=== PATIENT | female | born 1985 | race Caucasian/White ===

== ENCOUNTER 2024-04-02 16:21 | Inpatient (IN) | payer SELFPAY ==
[2024-04-02 16:34] VITALS: BP 118/83; PULSE 103; RESP 18; TEMP 36.6; O2SAT 95
[2024-04-02 16:37] VITALS: BMI 22.8
[2024-04-02] MEDS: OLANZapine 5 mg ODT PO (16:59)
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
[2024-04-02 20:21] VITALS: BP 97/64; PULSE 88; RESP 18; TEMP 36.6; O2SAT 94
[2024-04-03 06:00] VITALS: BP 109/73; PULSE 90; RESP 16; TEMP 37; O2SAT 96
[2024-04-03 13:37] VITALS: BP 128/84; PULSE 97; RESP 16; TEMP 36.8; O2SAT 98
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
[2024-04-03 14:13] LABS: Glucose Point of Care 80 mg/dL (70-110)
[2024-04-03] MEDS: acetaminophen 325 mg Tablet 650 MG PO (14:19)
[2024-04-03] MEDS: sertraline 50 mg Tablet 25 MG PO (14:19)
[2024-04-03] MEDS: promethazine 25 mg/mL SDV 1 mL IM (15:05)
--- NOTE | 2024-04-03 17:46 | PC.NURSE ---
PT CAME TO THIS NURSE WITH C/O OF N/V, DIZZINESS, FEELING FEVERISH , AND CHILLED. PT BLOOD SUGAR WAS OBTAINED WHICH RESULTED TO BE 80. PT REFUSED BREAKFAST AND STATED SHE DID NOT FEEL LIKE SHE WAS ABLE TO EAT LUNCH. THIS NURSE GAVE PT ICE-WATER AND A ENSURE TO PT, PT WAS UNABLE TO HOLD THIS DOWN AND VOMITED 2 TIMES. THIS NURSE SPOKE WITH PHYSICIAN WHO ORDERED 25MG IM PHENERGEN. THIS WAS ADMINISTERED AND PT WAS ABLE TO REST. HOWEVER WHEN PT WOKE FOR SUPPER PT WAS STILL UNABLE TO EAT. THIS NURSE PROVIDED A CLEAR ENSURE TO SEE IF JUST PROVIDING LIQUIDS WOULD GIVE THE PT THE ABILITY TO HOLD DOWN SOME CALORIES. THIS PT WAS UNABLE TO EVEN HOLD DOWN JUST LIQUIDS AND REQUIRED A BASIN FOR EMESIS. THIS NURSE ASSISTED PT IN CLEANING UP. THIS NURSE EMPTIED AND CLEANED OUT BASIN, ASSISTED PT IN BRUSHING HER TEETH SHE IS WEAK AND CANNOT STAND FOR A SHOWER AT THIS TIME. PT IS LETHARGIC AND WEAK, SHE IS UNSTEADY WHILE SITTING AT THIS TIME. THIS NURSE SPOKE WITH PHYSICIAN ABOUT UPDATES. PHYSICIAN OBTAINED A MEDICAL CONSULT. PT CURRENT NEEDS ARE MET AT THIS TIME.
--- NOTE | 2024-04-03 18:21 | CTR_ITS ---
PROCEDURE INFORMATION: Exam: CT Abdomen And Pelvis Without Contrast Exam date and time: 04/03/2024 6:37 PM Age: 39 years old Clinical indication: Nausea and vomiting; Additional info: Nausea vomitting TECHNIQUE: Imaging protocol: Computed tomography of the abdomen and pelvis without contrast. Radiation optimization: All CT scans at this facility use at least one of these dose optimization techniques: automated exposure control; mA and/or kV adjustment per patient size (includes targeted exams where dose is matched to clinical indication); or iterative reconstruction. COMPARISON: No relevant prior studies available. RADIATION DOSE METRICS: Total DLP (mGy-cm): 375 FINDINGS: Liver: 1.3 cm hypoattenuating focus within the left hepatic lobe likely representing a cyst versus hemangioma. Gallbladder and biliary ducts: Normal. No calcified stones. No ductal dilation. Pancreas: Normal. No ductal dilation. Spleen: Normal. No splenomegaly. Adrenal glands: Normal. No mass. Kidneys and ureters: 0.3 cm nonobstructing calculus in the interpolar of the left kidney. Hyperdense bilateral renal pyramids. No hydronephrosis. Stomach and bowel: Fecalization of stool within multiple loops of small bowel suggesting slow transit. No evidence of obstruction. Appendix: No evidence of appendicitis. Intraperitoneal space: Small volume free fluid in the pelvis. Mild haziness of the central mesentery. Vasculature: Unremarkable. No abdominal aortic aneurysm. Lymph nodes: Unremarkable. No enlarged lymph nodes. Urinary bladder: Unremarkable as visualized. Reproductive: The uterus is retroflexed. No adnexal mass. Bones/joints: Unremarkable. No acute fracture. Soft tissues: Unremarkable. CT/CT abdomen pelvis con [id number] IMPRESSION: 1. Nonspecific small volume free fluid in the pelvis. Findings can be correlated with ultrasound if clinically indicated. No adnexal mass. 2. 0.3 cm nonobstructing calculus in the interpolar of the left kidney. Hyperdense bilateral renal pyramids which may be normal or secondary to metabolic disturbance. Findings can be correlated with urinalysis if clinically indicated. No hydronephrosis. 3. Fecalization of stool within multiple loops of small bowel suggesting slow transit. No evidence of obstruction. COMMENTS: Consistent with the [employer]'s Incidental Findings Committee white paper (J Am Ivana Radiol 2018): Any incidental renal lesion less than 1 cm or classified as too small to characterize, or any incidental cystic renal lesion characterized as simple-appearing, is likely benign. No follow-up imaging is recommended for these lesions per consensus recommendations based on imaging criteria.
--- NOTE | 2024-04-03 19:18 | PC.NURSE ---
Report called to Maricarmen BARNETTsurg rn. No further questions. Waiting on bed to be cleaned.
[2024-04-03 19:29] VITALS: BP 130/80; PULSE 100; RESP 18; TEMP 36.8; O2SAT 98
[2024-04-03 19:38] LABS: Basophils # 0.1 10^3/uL (0.0-0.1); Basophils % 0.4 %; Lymphocytes # 0.4 10^3/uL (0.8-4.8); Lymphocytes % 3.2 %; Mean Corpuscular Hemoglobin 27.7 pg (27-33); Mean Corpuscular Volume 89.3 fl (85-98); Mean Platelet Volume 10.7 fL (7.4-10.4); Monocytes # 0.2 10^3/uL (0.2-0.9); Neutrophils # 11.31 10^3/uL (1.8-7.7); Neutrophils % 94.2 %; Nucleated Red Blood Cells % 0 %; Platelet Count 312 10^3/cmm (157-399); Red Blood Count 4.59 10^6/uL (3.85-5.65); Red Cell Distribution Width 13.7 % (12.1-15.1)
[2024-04-03 19:55] LABS: Alanine Aminotransferase 12 U/L (0-33); Albumin Level 4.6 g/dL (3.5-5.2); Alkaline Phosphatase 79 U/L (35-105); Anion Gap 27.6 (5-19); Aspartate Amino Transferase 25 U/L (0-32); Blood Urea Nitrogen 13 mg/dL (6-20); Calcium 9.1 mg/dL (8.5-10.5); Carbon Dioxide 15 mmol/L (22-29); Chloride 99 mmol/L (98-107); Creatinine Clr Calc Pharmacy 116.7058; Globulin 3.5 g/dL (1.3-4.6); Glomerular Filtration Rate 93.6 mL/min (90-130); Glucose 111 mg/dL (65-115); Lipase 14 U/L (13-60); Osmolality Calculated 285 mOsm/kg (285-295); Potassium 4.6 mmol/L (3.5-5.1); Sodium 137 mmol/L (136-145); Total Bilirubin 0.5 mg/dL (0.15-1.2); Total Protein 8.1 g/dL (6.6-8.7)
[2024-04-03 19:56] LABS: Lactic Sepsis W/Reflex 1.7 mmol/L (0.5-2.2)
--- NOTE | 2024-04-03 19:56 | PC.NURSE ---
Patient off unit to med surg with security and staff by wheelchair.
[2024-04-03] MEDS: sodium chloride 0.9% 1,000 ML 125 ML IV (20:36)
[2024-04-03] MEDS: ondansetron 2 mg/ML SDV 2 mL 4 MG IVP (20:42)
--- NOTE | 2024-04-03 20:44 | PC.NURSE ---
Patient requesting something to help her sleep. Dr. Posadas ordered PRN Trazodone.
[2024-04-03] MEDS: trazodone 50 mg Tablet PO (20:51)
[2024-04-03] MEDS: nicotine 21 mg Patch 1 PATCH TRANSDERMA (21:11)
--- NOTE | 2024-04-03 21:16 | PC.NURSE ---
This nurse stated to patient you seem like an awfully kind person to be thinking you don't deserve to live. Patient states To be honest, I just said that because I didn't want to spend a night in assisted.
--- NOTE | 2024-04-03 23:14 | PC.NURSE ---
Patients clothing locked in Pyxis. Patient's feminine pads left at bedside. Patient states she is on her menstrual cycle. 1:1 sitter at bedside.
[2024-04-04 04:11] VITALS: BP 156/89; PULSE 66; RESP 17; TEMP 36.7; O2SAT 97
[2024-04-04] MEDS: sodium chloride 0.9% 1,000 ML 125 ML IV (04:17)
[2024-04-04] MEDS: ondansetron 2 mg/ML SDV 2 mL 4 MG IVP (04:29)
[2024-04-04 06:04] LABS: Basophils % 0.4 %; Lymphocytes % 12.7 %; Mean Corpuscular HGB Conc 32.4 g/dL (30-55); Mean Corpuscular Hemoglobin 27.9 pg (27-33); Mean Corpuscular Volume 85.9 fl (85-98); Mean Platelet Volume 10.5 fL (7.4-10.4); Monocytes % 12.6 %; Neutrophils # 5.79 10^3/uL (1.8-7.7); Neutrophils % 74.2 %; Nucleated Red Blood Cells % 0 %; Platelet Count 324 10^3/cmm (157-399); Red Blood Count 3.84 10^6/uL (3.85-5.65)
[2024-04-04 06:21] LABS: Anion Gap 19.1 (5-19); Blood Urea Nitrogen 12 mg/dL (6-20); Calcium 8.5 mg/dL (8.5-10.5); Carbon Dioxide 17 mmol/L (22-29); Chloride 103 mmol/L (98-107); Creatinine Clr Calc Pharmacy 136.1567; Glomerular Filtration Rate 111.9 mL/min (90-130); Glucose 105 mg/dL (65-115); Osmolality Calculated 280 mOsm/kg (285-295); Phosphorus 4.4 mg/dL (2.5-4.5); Potassium 4.1 mmol/L (3.5-5.1); Sodium 135 mmol/L (136-145)
[2024-04-04 07:11] VITALS: BP 131/77; PULSE 83; RESP 16; TEMP 36.7; O2SAT 94
[2024-04-04 07:34] VITALS: PULSE 92; RESP 18; O2SAT 96
[2024-04-04] MEDS: sertraline 50 mg Tablet 25 MG PO (08:32)
--- NOTE | 2024-04-04 09:39 | P.CONIM_ITS ---
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 Patient is stating that she has not been using marijuana since childbirth. She was experiencing recurrent nausea vomiting, was extremely dehydrated, I decided to take her to the [facility] and give her IV fluids requested CT abdomen pelvis which did remarkable findings nonobstructing calculus and constipation, no adnexal mass. At the time of evaluation but she was not vomiting, volume of vomitus has lowered. She is hemodynamically stable requested CBC BMP which was unremarkable. Review of Systems 2 Const: Denies: fever(s) Eyes: Denies: change in vision ENMT: Denies: throat pain Card: Denies: chest pain Resp: Denies: dyspnea GI: Reports: abdominal pain, nausea and vomiting : Denies: flank pain Medications/Allergies Home Medications Medication Instructions Recorded Confirmed Last Taken Type clonazepam 0.5 mg tablet 0.5 mg PO DAILY 04/04/24 04/04/24 Unknown History dextroamphetamine-amphetamine ER 30 mg PO DAILY 04/04/24 04/04/24 Unknown History 30 mg 24hr capsule,extend release Allergies Allergy/AdvReac Type Severity Reaction Status Date / Time No Known Allergies Allergy Verified 04/02/24 17:01 Current Medications Generic Name Dose Route Start Last Admin Trade Name Freq PRN Reason Stop Dose Admin Acetaminophen 650 mg 04/02/24 16:34 04/03/24 14:19 Acetaminophen 325 Mg Tablet PO 650 mg Q4H PRN Administration MILD PAIN Olanzapine 5 mg 04/02/24 16:34 04/02/24 16:59 Olanzapine 5 Mg Odt PO 5 mg Q4H PRN Administration Agitation/Psychosis Sertraline HCl 25 mg 04/03/24 13:55 04/03/24 14:19 Sertraline 50 Mg Tablet PO 25 mg DAILY NORMAN Administration Vitals/I&O/Wt Last Vital Signs Temp 98.2 F 04/03/24 13:37 Pulse 97 04/03/24 13:37 Resp 16 04/03/24 13:37 BP 128/84 04/03/24 13:37 Pulse Ox 98 04/03/24 13:37 O2 Del Method Room Air 04/03/24 13:37 Weight last 48 hrs Weight 70.307 kg Physical Exam 2 Narrative: Young female Awake and alert No active suicidal ideation No active emesis Abdomen soft Bowel sound present Hemodynamic stable Pleasant cooperative S1, S2 Currently on room air Data 04/04/24 05:20 04/04/24 05:20 A&P Assessment and plan (1) Borderline personality disorder: (2) Suicidal ideation: (3) Cyclical vomiting: (4) Dehydration: Plan Cyclical Vomiting Significant dehydration Endorses using marijuana No active chest pain or shortness of breath Get drug screen Ct abd pelvis Add lipase and get cbc cmp along lipase use bland diet avoid antipsychotic drugs full code Start IV fluids Consult Attestations 2 Medical Necessity Statement: Transfer back to [facility] on Monday Diagnoses Borderline personality disorder F60.3 Suicidal ideation R45.851 Cyclical vomiting R11.15 Dehydration E86.0
[2024-04-04 10:39] LABS: Amphetamines Screen Urine Negative (Negative); Barbiturates Screen Urine Negative (Negative); Benzodiazepines Screen Urine Negative (Negative); Cocaine Screen Urine Negative (Negative); Opiate Screen Urine Negative (Negative); PCP Screen Urine Negative (Negative); THC Screen Urine Positive (Negative)
[2024-04-04 11:17] VITALS: BP 100/64; PULSE 90; RESP 15; TEMP 36.4; O2SAT 95
--- NOTE | 2024-04-04 15:12 | P.NPUPN_ITS ---
Subjective NPU 2 Subjective: 39-year-old female with borderline perso nality disorder admitted with concerns regarding suicidal ideation. Patient reported that she was not suicidal. She was transferred to the medical floor due to persistent vomiting. She had received fluids and was seen today on the medical unit. She had reported that she wished to go home and stated that she wanted to go back to work. She had reported that she had been compliant with her medication and would like to resume therapy. The patient's had reported that the patient had been significantly more angry and irritable and had reported to the the team that the family was filing a restraining order against her due to her threatening behavior. The patient did not have any problems with sleep reported. She had no outbursts on the unit. Mental Status Exam 2 MSE Comments: Casually dressed white female who appeared her stated age lying in bed. She was alert and oriented person place time and situation. There was no evidence of any abnormal involuntary motor movements tics or tremors appreciated. There was mild psychomotor retardation. Her speech was normal in regards to rate rhythm and prosody. Her mood was described as okay. Her affect was slightly restricted mood and congruent. Her thought process was linear logical and goal- directed. Her thought content showed no evidence of homicidal or suicidal ideation. She did not appear to be responding to internal stimuli. There was no clear evidence of delusional thinking. Her attention span appeared fair. Her recent and remote memory were grossly intact. Her insight is fair. Her judgment is fair. Her impulse control appeared fair. Her intelligence appeared commensurate with average to above average intelligence. Vitals/I&O/Wt Last Vital Signs Temp 97.5 F L 04/04/24 11:17 Pulse 90 04/04/24 11:17 Resp 15 04/04/24 11:17 BP 100/64 04/04/24 11:17 Pulse Ox 95 04/04/24 11:17 O2 Del Method Room Air 04/04/24 11:17 04/04/24 04/04/24 04/04/24 06:59 14:59 22:59 Intake Total 960.417 / 960.417 240 / 240 Balance 960.417 / 960.417 240 / 240 Weight last 48 hrs Weight 70.307 kg Data NPU 04/04/24 05:20 04/04/24 05:20 A&P Assessment and plan (1) Major depressive disorder, recurrent: (2) Suicidal ideation: (3) Borderline personality disorder: Plan #1.? Engage patient in individual milieu and group therapy.? #2? Encourage sober living treatment after discharge at the highest level of care to which he is willing to commit. #3??Increase zoloft to 50mg to target anxiety and depression. Referral for CBT with patient reporting history of DBT. #4?? TO-15 minute checks? #5?? Will attempt to gather collateral information Involuntary Hold Information 2 96 Hour Hold: 96 Hour Involuntary Admission: No Attestations NPU 2 Medical Necessity Statement*: Inpatient hospitalization is medically necessary and deemed to ?be ?the clinically appropriate intervention ?at this time.? We will monitor/initiate medications and make changes as indicated.?? The patient?s likely length of stay 2-3 days. Coding Level of Care Code Acute Code for g Fwd Diagnoses Major depressive disorder, recurrent F33.9 Suicidal ideation R45.851 Borderline personality disorder F60.3
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
[2024-04-04 16:44] VITALS: BP 100/64; PULSE 90; RESP 15; TEMP 36.4; O2SAT 95
== END 2024-04-04 17:05 | disposition home or self-care (01) | DRG 885 ==
LOC: NP 17:23 → MEDSURG 04-03 19:57 → NP 04-04 16:33
PROVIDERS: Internal Medicine; Admitting Provider Psychiatry & Neurology Psychiatry; Visit Provider Psychiatry & Neurology Psychiatry
DX: F33.9 Major depressive disorder, recurrent, unspecified (principal); R45.851 Suicidal ideations; F60.3 Borderline personality disorder; R11.10 Vomiting, unspecified; E86.0 Dehydration; F12.90 Cannabis use, unspecified, uncomplicated
CPT/HCPCS: 36415; 36416; 74176; 80048; 80053; 80306; 82962; 83605; 83690; 83735; 84100; 85025; 96372; J2405; J2550; J7030